=== PATIENT | male | born 1935 | race Caucasian/White ===

== ENCOUNTER → 2016-09-20 | Outpatient (CLI) | payer MEDICARE ==
[~2016-09-20] VITALS: Ht 175.3 cm; Wt 92.3 kg
[~2016-09-20] MED LIST: ALBU6.7H INH; AMIO200T PO; ASPI81TA5 PO; BUME2TAB PO; CALC0.25 PO; CARV6.25 PO; CHLORHEXIDINE GLUCONATE 2 % 1 PACK (2 CLOTHS) TOPICAL PRN; COEN1CAP PO; CYTO25TA PO; FINA5TAB2 PO; GLIP10TA6 PO; GLUC1CAP16 PO; INSULIN HUMAN REGULAR 1,000 UNITS/10 ML VIAL SQ PRN; LACTATED RINGER'S 1000 ML IV PRN; LEVO.125 PO; MAGN1TAB14 PO; METO25TA3 PO; METOPROLOL TARTRATE 25 MG TAB PO PRN; PLAV75TA29 PO; POVIDONE IODINE 5% (ANTISEPSIS KIT) 4 APPLICATIONS EACH NARE PRN; PROPOFOL 200 MG/20 ML AMP IV ONE; SODIUM CHLORID 0.9% 500 ML IV PRN; SPIRCAP INH; VITACAP7 PO; VYTO10TA9 PO
[2016-09-20 11:02] VITALS: BP 139/73; PULSE 70; RESP 18; TEMP 98.6; O2SAT 97
[2016-09-20 13:19] VITALS: TEMP 97.7
--- NOTE | 2016-09-20 13:20 | GIPROC ---
[facility] [address] [facility]. [facility], [address] EGD PROCEDURE REPORT EXAM DATE: 09/20/2016 PATIENT NAME: Osito Cole MR#: [id number] BIRTHDATE: 1935 STATUS: outpatient ATTENDING: Arturo Tam MD VISIT ID: [id number] DIRECTOR EMERGENCY SERVICES: Austen Smith and Kandice Perea ORDER #: [id number] INDICATIONS: The patient is a 80 yr old male here for an EGD due to iron deficiency anemia. PROCEDURE PERFORMED: EGD w/ biopsy MEDICATIONS: None and Per Anesthesia. ASA CLASS: Class IV PHYSICAL EXAM: normal CONSENT: The patient understands the risks and benefits of the procedure and understands that these risks include, but are not limited to: sedation, allergic reaction, infection, perforation and/or bleeding. Alternative means of evaluation and treatment include, among others: physical exam, x-rays, and/or surgical intervention. The patient elects to proceed with this endoscopic procedure. DESCRIPTION OF PROCEDURE: for proper function. Hand hygiene and appropriate measures for infection prevention was taken. After the risks, benefits and alternatives of the procedure were thoroughly explained, Informed consent was verified, confirmed and timeout was successfully executed by the treatment team. The Modbook EG-[id number] endoscope was introduced through the mouth and advanced to the second portion of the duodenum. The instrument was slowly withdrawn as the mucosa was fully examined. ESOPHAGUS: The mucosa of the esophagus appeared normal. STOMACH: There was severe and ulcerative gastritis in the gastric antrum. Multiple biopsies were performed. A subepithelial 10mm nodule was located in the gastric body. DUODENUM: The duodenal mucosa appeared normal in the bulb and second portion of the duodenum. Retroflexed views revealed a hiatal hernia The gastroscope was then slowly withdrawn and removed. COMPLICATIONS: There were no complications. IMPRESSIONS: 1. The esophagus appeared normal 2. There was gastritis in the gastric antrum; multiple biopsies were performed 3. A 10mm nodule was located in the gastric body 4. Normal duodenal mucosa in the bulb and second portion of the duodenum 5. Retroflexed views revealed a hiatal hernia RECOMMENDATIONS: 1. Await biopsy results. Biopsy results will not be ready for 7-10 days. If you don't hear from us in two weeks, call our office for biopsy results. 2. Continue PPI 3. Avoid NSAIDS 4. Resume anticoagulation PATIENT CONDITION: stable DISPOSITION: Home REPEAT EXAM: NONE Arturo Tam MD eSigned: Arturo Tam MD 09/20/2016 1:20 PM cc: PATIENT NAME: Osito Cole MR#: [id number]
--- NOTE | 2016-09-20 13:26 | GIPROC ---
[facility] [address] [facility]. [facility], [address] COLONOSCOPY PROCEDURE REPORT EXAM DATE: 09/20/2016 PATIENT NAME: Osito Cole MR #: [id number] BIRTHDATE: 1935 ENDOSCOPIST: Arturo Tam MD ORDER #: [id number] LUMBER GRADER: Austen Smith and Kandice Perea STATUS: outpatient INDICATIONS: The patient is a 80 yr old male here for a colonoscopy due to iron deficiency anemia and heme-positive stool PROCEDURE PERFORMED: Colonoscopy with polypectomy MEDICATIONS: None and Per Anesthesia. PREP QUALITY: good ESTIMATED BLOOD LOSS: None CONSENT: The patient understands the risks and benefits of the procedure and understands that these risks include, but are not limited to: sedation, allergic reaction, infection, perforation and/or bleeding. Alternative means of evaluation and treatment include, among others: physical exam, x-rays, and/or surgical intervention. The patient elects to proceed with this endoscopic procedure. medical equipment was checked for proper function. Hand hygiene and appropriate measures for infection prevention was taken. After the risks, benefits and alternatives of the procedure were thoroughly explained, Informed consent was verified, confirmed and timeout was successfully executed by the treatment team. A digital exam was performed The Pentax [id number] endoscope was introduced through the anus and advanced to the cecum, which was identified by both the appendix and ileocecal valve. The instrument was then slowly withdrawn as the colon was fully examined. COLON FINDINGS: Four sessile polyps ranging between 3-7mm in size were found in the transverse colon. A polypectomy was performed with a cold snare. The resection was complete and the polyp tissue was completely retrieved. A semi-pedunculated polyp measuring 8 mm in size was found in the sigmoid colon. A polypectomy was performed using snare cautery. The resection was complete and the polyp tissue was completely retrieved. Moderate diverticulosis was noted in the sigmoid colon. Moderate sized internal hemorrhoids were found. Retroflexion was performed The scope was then completely withdrawn from the patient and the procedure terminated. PROCEDURE WITHDRAWAL TIME:8minutes ADVERSE EVENTS: There were no complications. IMPRESSIONS: 1. Four sessile polyps ranging between 3-7mm in size were found in the transverse colon; polypectomy was performed with a cold snare 2. A semi-pedunculated polyp measuring 8 mm in size was found in the sigmoid colon; polypectomy was performed using snare cautery 3. Moderate diverticulosis was noted in the sigmoid colon 4. Moderate sized internal hemorrhoids 5. Retroflexion was performed 6. Was performed RECOMMENDATIONS: 1. Await biopsy results. Biopsy results will not be ready for 7-10 days. If you don't hear from us in two weeks, call our office for results. 2. Benefiber 2 tsp daily 3. Continue surveillance 4. High fiber diet 5. Resume anticoagulation RECALL: Return 3 years Colonoscopy Arturo Tam MD eSigned: Arturo aTm MD 09/20/2016 1:25 PM cc: PATIENT NAME: Osito Cole MR#: [id number]
[2016-09-20 13:40] VITALS: BP 116/65; PULSE 70; RESP 18; O2SAT 97
== END ==
LOC: HEND 10:26
PROVIDERS: ATTEND Internal Medicine Gastroenterology
DX: K29.60 Other gastritis without bleeding (principal); D12.5 Benign neoplasm of sigmoid colon; D12.3 Benign neoplasm of transverse colon; K44.9 Diaphragmatic hernia without obstruction or gangrene; K57.30 Diverticulosis of large intestine without perforation or abscess without bleeding; K64.8 Other hemorrhoids; D50.9 Iron deficiency anemia, unspecified
CPT/HCPCS: 88305

== ENCOUNTER → 2016-11-16 | Outpatient (CLI) | payer MEDICARE ==
[~2016-11-16] MED LIST changes: -CHLORHEXIDINE GLUCONATE 2 % 1 PACK (2 CLOTHS) TOPICAL PRN; -INSULIN HUMAN REGULAR 1,000 UNITS/10 ML VIAL SQ PRN; -LACTATED RINGER'S 1000 ML IV PRN; -METO25TA3 PO; -METOPROLOL TARTRATE 25 MG TAB PO PRN; -POVIDONE IODINE 5% (ANTISEPSIS KIT) 4 APPLICATIONS EACH NARE PRN; -PROPOFOL 200 MG/20 ML AMP IV ONE; -SODIUM CHLORID 0.9% 500 ML IV PRN
== END ==
LOC: HCAV 10:58
PROVIDERS: ATTEND Internal Medicine
DX: J44.9 Chronic obstructive pulmonary disease, unspecified (principal)
CPT/HCPCS: 94620

== ENCOUNTER → 2016-11-26 | Outpatient (CLI) | payer MEDICARE | LOC: HRSP 09:24 | PROVIDERS: ATTEND Internal Medicine | DX: J44.9 Chronic obstructive pulmonary disease, unspecified (principal) | CPT/HCPCS: 94620 ==

== ENCOUNTER → 2017-03-11 | Outpatient (CLI) | payer MEDICARE ==
[~2017-03-11] MED LIST changes: -ASPI81TA5 PO; -CYTO25TA PO; +ECASA81 PO; +LIOT25 PO; -MAGN1TAB14 PO; +MAGN400T3 PO
--- NOTE | 2017-03-12 10:54 | RSPPFT ---
DATE OF PROCEDURE: 03/11/17 COMMENTS: VOLUMES DYNAMIC: FVC and FEV1 moderately reduced. STATIC: TLC moderately reduced; FRC mildly reduced; RV normal. FLOWS: FEV1% normal; FEF 25-75 moderately reduced. DIFFUSION: Severely reduced. FLOW VOLUME LOOP: Restrictive configuration with terminal airflow obstruction. 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 No significant improvement post-bronchodilator.
== END ==
LOC: HRSP 12:13
PROVIDERS: ATTEND Internal Medicine
DX: J44.9 Chronic obstructive pulmonary disease, unspecified (principal)
CPT/HCPCS: 36600; 82805; 94060; 94618; 94726; 94729